=== PATIENT | male | born 1970 | race Caucasian/White ===

== ENCOUNTER 2020-09-01 05:13 | Emergency (ER) | payer BC ==
[2020-09-01 05:28] LABS: Bilirubin Negative (Negative); Blood, Urine Large (Negative); Clarity Clear (Clear); Glucose, Urine (Dipstick) Negative (Negative); Ketone, Urine Negative (Negative); Leukocyte Negative (Negative); Nitrite Negative (Negative); Protein, Urine (Dipstick) 30 mg/dL (Neg-Trace); Urobilinogen 0.2 mg/dL (Less than 2); pH, Urine 5.5 (5.0-9.0)
[2020-09-01 05:34] LABS: Bacteria/HPF Rare-Few HPF (None Seen); RBC/HPF 0-3 HPF (0-3); Specific Gravity, Urine 1.025 (1.002-1.036); Squamous Epithelial 0-3 HPF (0-3); WBC/HPF 0-3 HPF (0-3)
[2020-09-01] MEDS ORDERED: HYDROcodone/Acetaminophen 10/325 mg Tablet ONE (05:41)
[2020-09-01] MEDS ORDERED: Ketorolac Tromethamine 30 MG/ML VIAL ONE (05:41)
[2020-09-01] MEDS ORDERED: Dicyclomine 20 MG TAB ONE (05:46)
--- NOTE | 2020-09-01 07:32 | CT ---
PRELIMINARY REPORT/[facility]/EMERGENCY AFTER HOURS PROCEDURE: EXAM: CT Abdomen and Pelvis Without Intravenous Contrast CLINICAL HISTORY: LT FLANK PAIN THAT STARTED AT 4 AM, PRIOR HX OF KIDNEY STONES PER PT TECHNIQUE: Axial computed tomography images of the abdomen and pelvis without intravenous contrast. CONTRAST: None. COMPARISON: None provided. FINDINGS: LUNG BASES: No basilar airspace consolidation or pleural effusion. LIVER: Unremarkable. GALLBLADDER AND BILE DUCTS: Tiny gallstones. No ductal dilation. PANCREAS: Unremarkable. SPLEEN: Unremarkable. ADRENAL GLANDS: Unremarkable. KIDNEYS, URETERS, AND BLADDER: Mild hydronephrosis and hydroureter on the left with a 1 mm UVJ stone. No intrarenal stones are seen in either kidney. STOMACH AND BOWEL: Evaluation of the GI tract is limited due to lack of contrast and limited distention of the GI tract. No obvious, acute GI abnormalities are identified. APPENDIX: Normal appendix not clearly identified but no specific CT indications of acute appendicitis. PERITONEUM: No free fluid. No free air. LYMPH NODES: No lymphadenopathy. VASCULATURE: No aortic aneurysm. ABDOMINAL WALL AND SOFT TISSUES: Unremarkable. BONES: No fracture or suspicious osseous abnormality. IMPRESSION: Small UVJ stone on the left with hydronephrosis.. Small gallstones. ELECTRONICALLY SIGNED BY: Javier Tan MD Sep 01, 2020 5:36:34 AM CDT This report is intended for review by the ordering physician only, in accordance of law. If you recei ve this report in error, please call [facility] at [phone]. FINAL REPORT CT ABDOMEN AND PELVIS WITHOUT CONTRAST: Date: 09/01/[address] of the abdomen and pelvis was done without oral or IV contrast for evaluation of flank pain . Major finding on this study is a 2.0 mm distal left ureteral calculus at the UVJ that is causing very mild left hydronephrosis and hydroureter. I do not see any remaining stones in either kidney. The lung bases are clear. The liver, spleen, pancreas, adrenal glands, and abdominal aorta show no ac destiny findings. Several small gallstones were seen in the gallbladder. The bowel shows no distention, w all thickening, or inflammatory change. No free air or free fluid was present. CT of the pelvis shows no pelvic masses, fluid collections, or inflammatory changes. Incidental findings were a few mildly prominent lymph nodes in the inguinal/femoral regions bilateral ly, more so on the right. A tiny calcification was seen in the dorsum of the penis, probably not sign ificant. IMPRESSION: 1. 2.0 mm distal left ureteral calculus at the UVJ causing mild left hydronephrosis and hydroureter. 2. Tiny gallstones. Report in agreement with preliminary reading by [facility]. POS: HOME
== END 2020-09-01 06:00 | disposition home or self-care (01) ==
LOC: BURERS 05:13
DX: N13.2 Hydronephrosis with renal and ureteral calculous obstruction (principal); K80.20 Calculus of gallbladder without cholecystitis without obstruction; F17.220 Nicotine dependence, chewing tobacco, uncomplicated
CPT/HCPCS: 74176; 81003; 81015; 87086; 96372; J1885

== ENCOUNTER 2023-05-15 10:03 | Emergency (ER) | payer BC ==
[2023-05-15] MEDS ORDERED: Boostrix 0.5 ML (Tdap) VIAL (>/=7 yrs of age) ONE (10:23)
[2023-05-15] MEDS ORDERED: Lidocaine 1%/Epinephrine 1:100K 10 ML VIAL ONE (10:31)
== END 2023-05-15 11:23 | disposition home or self-care (01) ==
LOC: BURERS 10:03
DX: S61.411A Laceration without foreign body of right hand, initial encounter (principal); F17.220 Nicotine dependence, chewing tobacco, uncomplicated; W26.8XXA Contact with other sharp object(s), not elsewhere classified, initial encounter; Z23 Encounter for immunization
CPT/HCPCS: 12002; 90471; 90715